=== PATIENT | male | born 1940 | race African-American/Black ===

== ENCOUNTER 2016-08-30 03:51 | Emergency (ER) | payer MEDICARE, MEDICAID ==
[~2016-08-30] VITALS: Ht 180.3 cm; Wt 83.0 kg
[~2016-08-30 03:51] MED LIST: IBUP600T26 PO; LISI-363 PO; LORTA5 PO
[2016-08-30 03:54] VITALS: BP 192/93; PULSE 78; RESP 16; TEMP 97.8; O2SAT 99
[2016-08-30] MEDS ORDERED: PROPARACAINE HCL 0.5% OPHT SOLN 15 ML BTL EACH EYE ONE (04:00)
[2016-08-30] MEDS ORDERED: TETANUS/DIPHTHERIA TOXOID ADULT 0.5 ML VIAL IM ONE (04:00)
[2016-08-30] MEDS ORDERED: TOBRAMYCIN SULFATE 0.3% OPTH OINT 3.5 GM TUBE EACH EYE ONE (04:15)
--- NOTE | 2016-08-30 04:25 | PD ---
HPI Chief Complaint: Eye Problems/Injury Time Seen by Provider: 04:16 Travel History International Travel<30 days: No Contact w/Intl Traveler<30days: No Traveled to known affect area: No History of Present Illness HPI 76-year-old black male presents to emergency Department with complaints of a foreign body sensation in his right eye 3 days ago. He states that he was grinding metal when he felt something go into his eye. He used a magnet and irrigated out and felt that it was successful. He states that over the next day he felt a foreign body sensation and pain. Positive photophobia, tearing, foreign body sensation, redness and blurred vision. Not up-to-date with immunizations. PFSH Past Medical History Narrative Medical Borderline hypertension Asthma: No Blood Disorders: No Heart Rhythm Problems: No Cancer: No Cardiovascular Problems: No High Cholesterol: No Chemotherapy: No Chest Pain: No Congestive Heart Failure: No COPD: No Diabetes: No Diminished Hearing: No Endocrine: No Gastrointestinal Disorders: No Genitourinary: No Hepatitis: No Hiatal Hernia: No Hypertension: No Immune Disorder: No Medical other: No Musculoskeletal: No Neurologic: No Psychiatric: No Reproductive: No Respiratory: No Radiation Therapy: No Sleep Apnea: No Thyroid Disease: No Tetanus Vaccination: > 5 Years Influenza Vaccination: No Past Surgical History Narrative Surgical Left hand surgery Pacemaker: No Social History Alcohol Use: No Tobacco Use: No Substance Use: No Allergies-Medications (Allergen,Severity, Reaction): Coded Allergies: No Known Allergies (Verified , 08/30/16) Reported Meds & Prescriptions Reported Meds & Active Scripts Active No Active Prescriptions or Reported Medications Review of Systems Except as stated in HPI: all other systems reviewed are Neg Physical Exam Narrative GENERAL: This is a well-nourished, well-developed patient, in no apparent distress. SKIN: No rashes, ecchymoses or lesions. Warm and dry. HEAD: Atraumatic. Normocephalic. EYES: PERRL, EOMI, no discharge or injection in the left eye. No scleral icterus. The right eye is injected. Lids are flipped and no foreign body seen under the lids. There is a small metallic foreign body over the central vision. Ophthaine is instilled in the eye. Attempts at removal with a Q-tip are unsuccessful. The foreign bodies removed using an 18-gauge needle. The base of the wound is prescription to remove the rust ring. Fluorescein stain reveals resolution of the foreign body and remaining corneal abrasion from the trauma. EARS: Clear NOSE: Nasal turbinates appear normal. THROAT: Mucosa pink and moist. Airway patent. NECK: Trachea midline. supple, moves head freely. LUNGS: Clear to auscultation. CV: Regular in rhythm. ABDOMEN: Soft nontender. EXT: No clubbing cyanosis or edema. Data Data Last Documented VS Vital Signs Date Time Temp Pulse Resp B/P Pulse Ox O2 Delivery O2 Flow Rate FiO2 08/30/16 04:07 16 08/30/16 03:54 97.8 78 192/93 99 Room Air Orders Proparacaine 0.5% Opth Soln (Alcaine 0.5 (08/30/16 04:00) Tetanus/Diphtheria Tox Adult (Tetanus/Di (08/30/16 04:00) MDM Medical Decision Making Medical Screen Exam Complete: Yes Emergency Medical Condition: Yes Medical Record Reviewed: Yes Differential Diagnosis MDM: High Differential diagnoses: Acute conjunctivitis (bacterial, viral, allergic, traumatic), glaucoma, iritis, traumatic globe injury, foreign body, corneal abrasion, corneal ulcer, diabetic retinopathy, photokeratitis, herpes keratitis , CMV retinitis Narrative Course Patient had a tonic foreign body in his right eye which has been removed. His tetanus status is updated. He is given tobramycin ophthalmic ointment to the right eye will continue this 3 times daily and follow-up with ophthalmology on Saturday or Saturday. Diagnosis Primary Impression: Foreign body of right eye Qualified Code: T15.91XA - Foreign body of right eye, initial encounter Referrals: Valeria Del Castillo MD 1 day Patient Instructions: General Instructions Additional Instructions: Rest. Tobramycin ophthalmic ointment one ribbon to the right eye 3 times daily. Lortab for pain. Cooled Compress. Follow-up with your eye doctor or Dr. Del Castillo tomorrow or Saturday Return to the ER for problems. Med/Other Pt SpecificInfo: Prescription(s) given Scripts No Active Prescriptions or Reported Meds Disposition: 01 DISCHARGE HOME Condition: Stable (thank you) Luc Marcos Aug 30, 2016 04:25
[2016-08-30] MEDS ORDERED: HYDR-3533 PO (04:26)
== END 2016-08-30 04:55 | disposition home or self-care (01) ==
LOC: NEPK 03:51
DX: T15.91XA Foreign body on external eye, part unspecified, right eye, initial encounter (principal); W45.8XXA Other foreign body or object entering through skin, initial encounter
CPT/HCPCS: 65220; 90471; 90714